=== PATIENT | female | born 1945 | race Caucasian/White ===

== ENCOUNTER → 2020-12-19 | Outpatient (CLI) | payer MEDICARE ==
[~2020-12-19] MED LIST: KEFLEX CAP 500500 MG PO
[2020-12-19 12:03] LABS: RED BLOOD COUNT 4.7 M/UL (4.00-5.10); WHITE BLOOD COUNT 8.4 K/UL (4.5-11.0)
== END ==
LOC: LAB 10:46
PROVIDERS: Family Medicine
DX: E11.9 Type 2 diabetes mellitus without complications (principal); Z11.52 Encounter for screening for COVID-19
CPT/HCPCS: 36415; 82043; 83036; 85025; 86803

== ENCOUNTER → 2021-01-05 | Outpatient (CLI) | payer MEDICARE | LOC: RAD 16:56 | DX: S29.9XXA Unspecified injury of thorax, initial encounter (principal); S22.32XA Fracture of one rib, left side, initial encounter for closed fracture | CPT/HCPCS: 71111 ==

== ENCOUNTER → 2021-04-27 | Outpatient (CLI) | payer MEDICARE | LOC: EROP 11:41 | PROVIDERS: Family Medicine | DX: E78.5 Hyperlipidemia, unspecified (principal); E11.9 Type 2 diabetes mellitus without complications | CPT/HCPCS: 36415; 80053; 80061; 83036 ==

== ENCOUNTER → 2021-10-07 | Outpatient (CLI) | payer MEDICARE | LOC: LAB 12:01 | DX: E11.9 Type 2 diabetes mellitus without complications (principal); R53.83 Other fatigue; D51.9 Vitamin B12 deficiency anemia, unspecified | CPT/HCPCS: 36415; 82607; 83036; 84443 ==